=== PATIENT | male | born 1990 | race Caucasian/White ===

== ENCOUNTER 2020-04-07 07:29 | Emergency (ER) | payer BC, SELFPAY ==
[2020-04-07 07:29] VITALS: BP 151/86; PULSE 72; RESP 16; TEMP 36.6; O2SAT 99; BMI 27.5
--- NOTE | 2020-04-07 07:46 | ED.DCSUM_ITS ---
History of Present Illness Chief Complaint: Dizziness Informant: Patient Onset: Days - 3 Context: Gradual Onset Timing: Intermittent Quality: Spinning/movement Location: head Current Severity: Mild Maximum Severity: Moderate Worsened by: Lying down, turning head, walking Relieved by: Remaining still Associated Symptoms: Tinnitus off and on, mild frontal headache. Narrative: Patient having vertiginous symptoms over the last several days. He is on no medications, has no past medical history, he drinks beer on occasion but is not an alcoholic. He noticed this after drinking a glass of water and hanging out with some friends the other day. Symptoms have persisted. No vision changes, focal neurologic symptoms in his extremities, confusion, fever/chills, earache. No sinus congestion or cold symptoms. Past Medical History - Allergies and Home Meds Allergies/Adverse Reactions: Allergies No Known Allergies Allergy (Verified 04/07/20 07:31) Primary Care Physician: NOT,DEFINED [Primary Care Provider] - Past Medical History: None Smoking Status: Never smoker Alcohol: Occasional Review of Systems General: Denies: Chills, Fever, Sweats Eyes: Denies: Visual changes - bilaterally, Diplopia ENT: Reports: - - intermittent tinnitus. Denies: Bilateral ear pain, Rhinorrhea, Sore throat Cardiovascular: Denies: Chest pain, Palpitations Respiratory: Denies: Dyspnea, Cough, Dyspnea on exertion Gastrointestinal: Denies: Abdominal pain, Nausea, Vomiting, Diarrhea, Melena, Hematochezia Genitourinary: Denies: Dysuria, Hematuria, Frequency Musculoskeletal: Denies: Myalgias, Neck pain, Back pain, Extremity Pain Skin: Denies: Rash, Wounds Neurological: Reports: Headache - mild pressure bifrontal, - - vertigo; see HPI. Denies: Weakness, Numbness Physical Exam Vital Signs/Narrative: Vital Signs Temp Pulse Resp BP Pulse Ox 04/07/20 07:29 97.8 F 72 16 151/86 H 99 Inital Vital Signs reviewed: Yes General: Well nourished, Well developed, No Acute Distress Head: Normocephalic, Atraumatic Eyes: Perrl, EOMI, - - mild horiz nystagmus, nonfatiguable. no vertical/rotatory nystagmus. ENT: Moist mucous membranes, No rhinorrhea, TM's clear - EACs clear bilat. Negative for: Nasal congestion, Sinus tenderness Neck: Supple, Nontender Cardiovascular: Regular rate, Regular rhythm, No murmurs Respiratory: No distress, CTA bilaterally, Chest nontender Extremities: Nontender, No edema Skin: Normal color, No rash Neurological: Alert, Oriented x3, Cranial nerves II-XII grossly intact, Normal Strength, Normal Sensation, Normal Gait, - - Normal zyozty-[id number]-vcgf and cdmc-oi-ilhf bilaterally Psychological: Normal affect, Normal Mood Diagnostic/Tx/Re-eval - Medical Decision Making Patient was reassured this is likely peripheral vertigo. The cause is unknown. Differential includes labyrinthitis, vestibular neuronitis, BPPV. Less likely to be M?ni?re's disease. Given Antivert to use as needed, and advised to follow-up with otolaryngology if symptoms do not resolve within a week. ED Disposition - Plan for ED Patient: Disposition: Home or Assisted Living Diagnosis: Peripheral vertigo, unspecified Instructions: ED BPV Vertigo, ED Vertigo Unspecified Prescriptions: Meclizine HCl 25 mg PO Q8H PRN #20 tab PRN Reason: Vertigo Transmission Status: Pending to [facility] Referrals: Boogie Fields MD [STAFF PHYSICIAN] - 1 Week if not improving
[2020-04-07] MEDS: Meclizine HCl 25 MG Tablet PO (07:55)
== END 2020-04-07 08:04 | disposition home or self-care (01) ==
LOC: ED 08:03
PROVIDERS: Emergency Provider Emergency Medicine
DX: H81.399 Other peripheral vertigo, unspecified ear (principal)
CPT/HCPCS: 99283

== ENCOUNTER 2020-07-22 14:26 | Emergency (ER) | payer OTHER, SELFPAY ==
[2020-07-10 09:59] VITALS: BMI 27.5
[2020-07-22 14:27] VITALS: BP 147/80; PULSE 74; RESP 16; TEMP 35.6; O2SAT 100; BMI 28.3
[2020-07-22 14:29] VITALS: BP 147/80; PULSE 83; RESP 16; TEMP 35.6; O2SAT 100
--- NOTE | 2020-07-22 14:42 | EKG12_ITS ---
Test Reason : CP Blood Pressure : / mmHG Vent. Rate : 065 BPM Atrial Rate : 065 BPM P-R Int : 172 ms QRS Dur : 102 ms QT Int : 400 ms P-R-T Axes : 065 074 009 degrees QTc Int : 416 ms Normal sinus rhythm with sinus arrhythmia Incomplete right bundle branch block Borderline ECG Confirmed by ROXI RUBIN, MORENA ([id number]), senior editor REGIS KUNZ ([id number]) on 07/23/2020 12:51:42 PM Referred By: RU Confirmed By:MORENA DIANE MD
--- NOTE | 2020-07-22 14:44 | CT_ITS ---
STUDY: CTA HEAD AND NECK WITH CONTRAST REASON FOR EXAM: Male, 30 years old. VERTIGO,MARCOS,CP,N/T TO RT HAND RADIATION DOSAGE (If Supplied By Facility): CTDIvol = ( 28.16 ) mGy, DLP = ( 1556.00 ) mGycm TECHNIQUE: CT angiography was performed with a multi-detector CT scanner. Data acquisition was obtained from the skull base through the vertex following intravenous administration of IV 100mL Isovue-370. MIP images were reconstructed from the axial data set. Post-processing of the angiographic images was performed, with multiplanar reformation and 3D reconstruction. Individualized dose optimization techniques were used for this CT. COMPARISON: No relevant priors. FINDINGS: Normal bilateral petrous carotid arteries. Normal right cavernous carotid artery with a normal supraclinoid bifurcation. Normal left cavernous carotid artery with a normal supraclinoid bifurcation. Normal right A1 segments of the anterior cerebral artery. Normal left A1 segments of the anterior cerebral artery. There is non-visualization of the anterior communicating artery (ACOM). Normal bilateral A2 segments of the anterior cerebral arteries. Normal right M1 and M2 segments of the middle cerebral arteries, with a normal M1 bifurcation. Normal left M1 and M2 segments of the middle cerebral arteries, with a normal M1 bifurcation. Normal right posterior communicating artery (PCOM). Normal left posterior communicating artery (PCOM). Normal bilateral vertebral arteries. Normal basilar artery with a normal basilar bifurcation. The visualized bilateral superior cerebellar (SCA) arteries are normal. Normal bilateral P1, P2 and visualized P3 segments of the posterior cerebral arteries. There is no demonstrated aneurysm of the [place] of [place]. There is no demonstrated abnormality of the visualized brain. AORTIC ARCH: Normal visualized aortic arch. Normal origins of the brachiocephalic, left common carotid, and left subclavian arteries. RIGHT CAROTID ARTERIES: Normal right common carotid artery (CCA). Normal right common carotid bulb. Normal origin of the right internal carotid (ICA) artery without a hemodynamically significant stenosis. Normal visualized cervical portion of the right internal carotid artery. Normal origin of the right external carotid artery (ECA). LEFT CAROTID ARTERIES: Normal left common carotid artery (CCA). Normal left common carotid bulb. Normal origin of the left internal carotid (ICA) artery without a hemodynamically significant stenosis. Normal visualized cervical portion of the left internal carotid artery. Normal origin of the left external carotid artery (ECA). VERTEBRAL ARTERIES: Normal bilateral vertebral arteries. CT/CTA Head AND Neck W/ Contrast IMPRESSION: Normal CTA Head and neck with contrast. Electronically Signed: Sylvain Gilliam MD at 16:25 EST Tel , Service support ,
--- NOTE | 2020-07-22 14:44 | ED.VISSUMM ---
- ER Visit Summary Date of Service: 07/22/20 Chief Complaint: [Headache and chest pain and paresthesias to the right hand.] History of Present Illness: The patient is a 30 M presents to the emergency department complain of a headache that started around 11:30 AM this morning. Patient states headache came on gradually and he took an Imitrex without any relief. About 90 minutes ago he started developing numbness and tingling in his right hand which has been intermittent. Patient has never had sensations like that before. Patient states that he does feel jittery. He also developed about 2 hours ago some left-sided chest discomfort that he is describing as pressure-like. No history of anxiety or panic attacks. Patient states that in February 2020 he started developing vertigo and headaches and has been seen by Dr. Fields who believes he may have M?ni?re's disease. Patient is scheduled to see a neurologist in August. Patient has not had any brain imaging since he was in fifth grade. Patient states he gets headaches about 5 times a week. Patient states that his headache is throbbing and frontal. He describes photophobia and no significant nausea or vomiting. Headache is different due to the paresthesias and the development of the chest discomfort. Patient currently rates his headache an 8 or 9 out of 10. No family history of brain tumors or aneurysms known. Patient otherwise has no medical history. He denies any trauma to his head. Patient denies Covid symptoms although he does state that he had Covid in November 2019. [] Physical Examination: [HEENT-PERRLA, EOMI. Cranial nerves II through XII grossly intact. TMs clear. Mucous membranes moist. No adenopathy. Cardiovascular-regular rate and rhythm without murmur or ectopy Lungs-clear to auscultation, chest wall stable without crepitus or subcu emphysema Abdomen-normoactive bowel sounds, soft, nontender, no rebound or rigidity, no peritoneal signs. Neuro zghn-hoeobv-xpta and heel watts testing within normal limits, negative Romberg, negative for, fundi benign Extremities-intact ?4, normal range of motion, normal pulses, atraumatic] Test Results: [EKG obtained arrival shows sinus rhythm with ventricular rate of 65 bpm with an incomplete right bundle branch block. CBC with differential count of 4.3, hemoglobin 13, hematocrit 39.6, platelet 219. Chemistries unremarkable. Troponin less than 0.015. D-dimer was less than 0.27. CTA of the head and neck obtained was normal.] Emergency Department Course and Treatment: [IV line established on arrival. Patient was given Reglan, Benadryl, Toradol, and a liter normal same fluid bolus and his headache improved dramatically to a 3 out of 10. Patient's chest pain is currently resolved. His paresthesias are resolved.] Treatment Plan: [Patient advised to keep his appointment with neurology. I feel his chest pain is atypical and not cardiac related. His heart score was 0. We discussed possibility of anxiety as a cause of some of his symptomatology.] Disposition: [Discharged home in stable condition] Impression: [Migrainous cephalgia Atypical chest pain] This note was generated with [employer] dictation software. It may contain incorrect words, spelling, and punctuation that were not noted in review of the chart prior to signing ED Disposition - Plan for ED Patient: Referrals: Care Physician,No Primary [Primary Care Provider] -
[2020-07-22] MEDS: 0.9% Normal Saline 1,000 ML 1000 ML IV (14:58)
[2020-07-22 14:59] LABS: Absolute Lymphocyte Count 1.38 X10^3/uL (0.83-4.51); Absolute Neutrophil Count 2.3 X10^3/uL (2.0-7.7); Basophil# 0.04 X10^3/uL; Basophil% 0.9 % (0-1); Eosinophil# 0.15 X10^3/uL; Eosinophils% 3.5 % (0-5); Hematocrit 39.6 % (40-54); Hemoglobin 13.3 g/dL (13.0-16.5); Lymphocyte # 1.38 X10^3/ul (4.0); Lymphocyte % 32.2 % (19-41); Mean Corp Hgb Conc 33.6 g/dL (32-36); Mean Corpuscular Volume 89.2 fL (80-94); Mean Platelet Vol. 10.5 fl (6.2-12.0); Monocyte# 0.38 X10^3/uL; Monocyte% 8.9 % (0-10); NRBC Flagged by Analyzer 0 % (0-5); Neutrophil # 2.34 X10^3/uL (2.7-7.7); Neutrophil % 54.5 % (47-70); Platelet Count 219 K/mm3 (150-450); RBC Distribution Width CV 11.6 % (11.6-14.6); RBC Distribution Width SD 37.3 fl (35.1-43.9); Red Blood Count 4.44 M/mm3 (4.6-6.2); White Blood Count 4.3 K/mm3 (4.4-11.0)
[2020-07-22] MEDS: DiphenhydrAMINE 50 MG/ML Syringe 25 MG IV (14:59)
[2020-07-22] MEDS: Metoclopramide 10 MG/2 ML Vial IV (14:59)
[2020-07-22] MEDS: Ketorolac 30 MG/ML Syringe IV (14:59)
[2020-07-22 15:16] LABS: Anion Gap 4 (5-15); BUN 15 mg/dL (7-18); BUN/Creat Ratio 13.6 RATIO (10-20); Calcium,Total 8.6 mg/dL (8.5-10.1); Chloride 110 mmol/L (98-107); EST Glomerular Filtration Rate 85 mL/min (>60); Est Glom Filt Rate - Afr Amer 102 mL/min (>60); Estimated Creatinine Clearance 112.99 ml/min; Glucose 121 mg/dL (74-106); Potassium 3.9 mmol/L (3.5-5.1); Sodium Level 141 mmol/L (136-145)
[2020-07-22 15:20] LABS: D-Dimer Quantitative (DVT/PE) <= 0.27 FEU/ug/m (0.27-0.49)
[2020-07-22 15:43] VITALS: BP 131/65; PULSE 52; RESP 14; O2SAT 99
[2020-07-22 16:09] VITALS: BP 128/61; O2SAT 98
--- NOTE | 2020-07-22 16:51 | ED.DEP ---
ED Disposition - Plan for ED Patient: Instructions: ED Chest Pain, Uncertain Cause, ED, Migraine (Classical) Referrals: Care Physician,No Primary [Primary Care Provider] - Franky Duran MD [STAFF PHYSICIAN] - 3-5 Days
[2020-07-22 17:06] VITALS: RESP 14
== END 2020-07-22 17:07 | disposition home or self-care (01) ==
LOC: ED 15:14
PROVIDERS: Emergency Provider Emergency Medicine
DX: G43.909 Migraine, unspecified, not intractable, without status migrainosus (principal); R07.89 Other chest pain; R20.2 Paresthesia of skin; Z72.0 Tobacco use; Z86.16 Personal history of COVID-19
CPT/HCPCS: 70496; 70498; 80048; 84484; 85025; 85379; 93005; 96361; 96374; 96375; 99285; Q9967

== ENCOUNTER → 2020-09-30 17:44 | Outpatient (CLI) | payer OTHER, SELFPAY ==
[2020-09-18 08:06] VITALS: BMI 28.5
--- NOTE | 2020-09-30 17:44 | MRI_ITS ---
STUDY: MRI BRAIN WITH AND WITHOUT CONTRAST REASON FOR EXAM: Male, 30 years old. Migraines, Meniere''s Disease TECHNIQUE: Standardized multiplanar fat and water weighted pulse sequences were obtained. IV 20ml Dotarem was administered for the contrast portion of the examination. COMPARISON: CTA head 07/22/2020. FINDINGS: No intracranial mass, mass effect, or midline shift. No enhancing lesion. No hemorrhage, territorial infarct or acute ischemia. Normal size of the ventricles and extra-axial spaces for the patient''s age. Normal white matter tracts of the supratentorial brain. Normal bilateral basal ganglia. Normal thalami. There is no extra-axial fluid accumulation. Normal flow voids within the major intracranial circulation suggesting patency by spin echo criteria. There is no enhancing intra-axial or extra-axial abnormality. Normal sella turcica, pituitary gland, infundibular stalk, optic chiasm and hypothalamus. Normal midbrain, kenneth and medulla. Normal cerebellum. Normal basal cisterns. Normal bilateral temporal bones. Normal bilateral internal auditory canals. Normal visualized paranasal sinuses. Normal calvarium and skull base. Normal visualized soft tissue structures. MRI/Brain W/WO Contrast IMPRESSION: Normal unenhanced and enhanced MRI of the brain. Electronically Signed: Bibiana Goldsmith MD at 22:46 EDT Tel , Service support ,
== END ==
PROVIDERS: Referring Provider Psychiatry & Neurology Neurology; Visit Provider Psychiatry & Neurology Neurology
DX: G43.909 Migraine, unspecified, not intractable, without status migrainosus (principal); H81.09 Meniere's disease, unspecified ear
CPT/HCPCS: 70553; A9575